=== PATIENT | female | born 1930 ===

== ENCOUNTER → 2016-06-01 | Outpatient (CLI) | payer MEDICARE, BC ==
[~2016-06-01] MED LIST: ALDACTONE25 MG PO; ALTACE10 MG PO; CALCIUM600 MG PO; COLCHICINE0.6 MG PO; DULCOLAX10 MG R; HYDRODIURIL12.5 MG PO; LEVOTHROID (S112 MCG PO; LIPITOR80 MG PO; MIRALAX17 GM PO; PERCOCET 5-3251 EACH PO; TOPROL XL25 MG PO; VITAMIN D1000 UNIT PO; VITAMIN E400 UNI2 PO
== END | disposition disaster alternative care site (69) ==
LOC: GBCOE 05-22 13:20
DX: Z12.31 Encounter for screening mammogram for malignant neoplasm of breast (principal)
CPT/HCPCS: G0202